=== PATIENT | male | born 2000 | race Caucasian/White ===

== ENCOUNTER 2020-07-14 16:11 | Emergency (ER) | payer OTHER, SELFPAY ==
[2020-07-14 16:23] VITALS: BP 142/86; PULSE 80; RESP 18; TEMP 36.6; O2SAT 99; BMI 34.9
[2020-07-14] MEDS: Lidocaine HCl 1 % MPF 5 ML VIAL SUBCUT ×2 (16:45)
[2020-07-14] MEDS: Diphth,Pertus(ACell),Tet Adult 0.5 ML SYRINGE IM (16:46)
--- NOTE | 2020-07-14 16:50 | PC.NURSE ---
LEFT HAND WOUND CLEANED OUT WITH NS, PT DENIES ANY PAIN AT THIS TIME.
--- NOTE | 2020-07-14 17:24 | ED.WOUNDLAC ---
HPI - Wound/Laceration General Chief Complaint: Wound/Laceration Stated Complaint: Hand Lac Time Seen by Provider: 07/14/20 16:39 History of Present Illness HPI narrative: Patient complains of cut on the left hand, he was at work cutting something with a razor and accidentally cut his left hand no numbness weakness or tingling no other injury is not up-to-date on his tetanus shot Related Data Allergies Allergy/AdvReac Type Severity Reaction Status Date / Time No Known Allergies Allergy Verified 07/14/20 16:26 [No Known Allergies*] Review of Systems Review of Systems: Positive for left hand laceration negative for no numbness no weakness no tingling no dizziness no rash no fever PMFSH Past Medical History Source: nursing notes reviewed Medical History (Updated 07/14/20 @ 17:27 by RICK Thomas) No known health problems Social History Social History Advance Directives: No Advance Directives Information Provided: Yes Physical Exam Vital Signs: Vital Signs: Last Vital Signs Temp 97.8 F 07/14/20 16:23 Pulse 80 07/14/20 16:23 Resp 18 07/14/20 16:23 BP 142/86 H 07/14/20 16:23 Pulse Ox 99 07/14/20 16:23 Body Mass Index 34.9 General appearance is no acute distress comfortable relaxed tearful and cooperative Head is normocephalic atraumatic Neck is supple Respiratory no distress Extremities the left hand on the thenar eminence has a 1.5 cm laceration which is gaping, neurovascular intact distal all flexor and tendon Other extremities normal Neuro no focal deficit functions are normal Course Course Course Narrative: Procedure note for left hand laceration 1.5 cm Cleansed and irrigated with normal saline No foreign body visualized 3 5.0 sutures are placed Bleeding controlled and bandage placed Discharge Plan Discharge Clinical Impression: Laceration Patient Disposition: Home, Self-Care Additional Instructions: The wound was closed with stitches which should be removed in 7-10 days You can have them removed at the [facility] because this is a work related injury Follow with [facility] for any problems or return to the ER if you get any sign of infection redness swelling discharge or pain We gave you a tetanus shot today Referrals: [facility] [Provider Group] - 2 days (Suture removal in 7-10 days) Discharge Date/Time: 07/14/20 17:32
== END 2020-07-14 17:32 | disposition home or self-care (01) ==
PROVIDERS: Emergency Provider Emergency Medicine
DX: S61.412A Laceration without foreign body of left hand, initial encounter (principal); W27.8XXA Contact with other nonpowered hand tool, initial encounter; Y93.89 Activity, other specified; Y92.89 Other specified places as the place of occurrence of the external cause; Y99.0 Civilian activity done for income or pay
CPT/HCPCS: 12001; 90471; 90715; 99283; 99284

== ENCOUNTER → 2020-07-21 15:12 | Outpatient (BNVA) | payer OTHER, SELFPAY | PROVIDERS: Visit Provider Internal Medicine | DX: S61.412D Laceration without foreign body of left hand, subsequent encounter (principal); W26.8XXD Contact with other sharp object(s), not elsewhere classified, subsequent encounter | CPT/HCPCS: 99201; 99212 ==

== ENCOUNTER 2021-04-21 08:30 | Emergency (ER) | payer OTHER, SELFPAY ==
[2021-04-21 08:44] VITALS: BP 120/60; PULSE 84; RESP 18; TEMP 36.8; O2SAT 100; BMI 27.3
--- NOTE | 2021-04-21 08:54 | ED.URI ---
HPI - URI/Sore Throat General Chief Complaint: Upper Respiratory Symptoms Stated Complaint: Covid symptoms Time Seen by Provider: 04/21/21 08:41 Source: patient Mode of arrival: ambulatory Limitations: no limitations History of Present Illness HPI Narrative: unvaccinated MD elicited complaint: fever, cough, sore throat and rhinorrhea Onset (ago): day(s) (3) Consistency: constant Severity: mild Description of mucous: clear Able to tolerate fluids by mouth: Yes Exacerbating factors: swallowing Relieving factors: nothing Context: sick contacts (mom has COVID ) Associated symptoms: fever, chills, myalgias, headache, rhinorrhea, sore throat and cough Treatments prior to arrival: none Related Data Allergies Allergy/AdvReac Type Severity Reaction Status Date / Time No Known Allergies Allergy Verified 07/14/20 16:26 [No Known Allergies*] Review of Systems Review of Systems: Constitutional : positive Fever, positive Chills, positive fatigue, positive Malaise ENT/Mouth : positive sore throat, positive runny nose Eyes: No Discharge Cardiovascular : No Chest Pain, No SOB Respiratory : No Cough, No Sputum Gastrointestinal : No Nausea, No Vomiting, No Diarrhea Genitourinary : No Dysuria, No Urinary Frequency Musculoskeletal : positive Myalgia Skin : No rash Neuro : No Headache PMFSH Past Medical History Attestation statement: The following information was validated with the patient. Medical History No known health problems Social History Social History (Updated 04/21/21 @ 09:19 by Sunita Gómez DO) Patient Tobacco Use Status: Current everyday Tobacco user Advance Directives: No Advance Directives Information Provided: Yes Physical Exam Vital Signs: Vital Signs: Last Vital Signs Temp 98.3 F 04/21/21 08:44 Pulse 84 04/21/21 08:44 Resp 18 04/21/21 08:44 BP 120/60 04/21/21 08:44 Pulse Ox 100 04/21/21 08:44 BMI result Body Mass Index 27.3 Appearance: Alert. Oriented X3. No acute distress. Eyes: Pupils equal, round and reactive to light. ENT: Pharynx normal. Neck: Normal inspection. Neck supple. CVS: Normal heart rate and rhythm. Pulses normal. Respiratory: No respiratory distress. Breath sounds normal. Abdomen: Soft and non-tender. Skin: Skin warm and dry. Normal skin color. Extremities: No lower extremity edema. Neuro: Oriented X 3. No motor deficit. No sensory deficit. MDM - URI/Sore Throat MDM Narrative Medical decision making narrative: 20 yo male not toxic, no resp issues + exposure at home, unvaccinated test for COVID will send home with precautions Lab Data Labs: Lab Results 04/21/21 Range/Units 08:50 COVID-19 ([facility]) Positive A (Negative) COVID-19 Clin Com See Note Discharge Plan Discharge Clinical Impression: COVID-19 Instructions: COVID-19 (Coronavirus Disease 2019) (ED) Additional Instructions: return to ED for any worsening symptoms or concerns monitor your breathing Stand Alone Forms: Work/School Release
[2021-04-21 09:12] LABS: IDNOW Serial# 08D9AD1C
[2021-04-21 09:13] LABS: COVID-19 Test Positive (Negative)
== END 2021-04-21 09:27 | disposition home or self-care (01) ==
PROVIDERS: Emergency Provider Emergency Medicine
DX: U07.1 COVID-19 (principal)
CPT/HCPCS: 36415; 87635; 99283